=== PATIENT | female | born 1940 | race Caucasian/White ===

== ENCOUNTER → 2023-03-23 13:42 | Outpatient (REF) | payer MEDICARE, OTHER, SELFPAY ==
--- NOTE | 2023-03-23 13:47 | CA_ITS ---
Transthoracic Echocardiogram Patient (Last, First, Middle): Kaylie Henry, Gender: Female Date of : 1940 Age: 82 Procedure Date: 03/23/2023 Procedure Type: Transthoracic Echocardiogram Location: [facility] Height: 149.86 cm Weight: 64.41 kg BSA: 1.59 m2 Heart Rate: 65 bpm BP: 132 / 68 mmHg Accountant Clerk: SB Referring MD: Elmer Ramos MD Symptoms: CARDIOMEGALY Study Quality: Adequate ECG Rhythm: Sinus Conclusions: - The left ventricular systolic function is normal. The visually estimated ejection fraction is between 65-70%. - There is mild calcification of the aortic valve. - There is mild mitral annular calcification. Findings Left Ventricle Normal left ventricular cavity size. There is normal left ventricular wall thickness. The left ventricular systolic function is normal. The visually estimated ejection fraction is between 65-70%. There is no evidence of regional wall motion abnormalities. Diastolic function is normal for age. LV peak GLS -16.9%, borderline reduced. Could also be underestimation. Right Ventricle Normal right ventricular cavity size and systolic function. Atria Both atria are normal in size. Aortic Valve There is a normal trileaflet aortic valve. There is mild calcification of the aortic valve. There is no aortic valve stenosis. There is no aortic valve regurgitation. Mitral Valve There is mild mitral annular calcification. There is no mitral valve regurgitation. There is no mitral valve stenosis. Pulmonic Valve The pulmonic valve is likely normal. Tricuspid Valve There is trace tricuspid valve regurgitation. There is no evidence of pulmonary hypertension. Great Vessels The asc aorta is normal in size. Venous The inferior vena cava is normal in size and collapses less than 50% with inspiration. Pericardium/Pleural There is a trivial pericardial effusion. Prior Study Comparison No significant change compared to prior study dated: 09/08/2013. Measurements 2D Linear Measurements IVSd: 0.86 0.6-0.9/0.6-1.0 cm LVIDd: 4.55 3.9-5.3/4.2-5.9 cm LVIDd Index: 2.86 2.4-3.2/2.2-3.1 cm/m2 LVIDs: 2.57 2.0-3.6 cm LVPWd: 0.83 0.7-1.1 cm LA Diam: 3.60 2.7-3.8/3.0-4.0 cm LAIDs Index: 2.26 1.5-2.3 cm/m2 LV Mass: 154.60 67-162/88-224 g LV Mass Index: 97.24 43-95/49-115 g/m2 LVOT Diam: 2.00 3.0+(-)1.3 cm 2D Systolic Function EF 4C: 61.90 >55% EF 2C: 64.40 >55% EF BiP: 63.00 >55% Mitral Valve MV VTI: 0.26 MV Pk Geovanny: 0.93 MV Mn Geovanny: 0.51 MV Pk Grad: 3.00 MV Mn Grad: 1.00 MV Pk E: 0.69 MV PK A: 1.08 MV Decel Time: 264.00 E/A: 0.60 E'Lateral: 6.31 E'Medial: 4.79 E/E' Med: 14.30 E/E' Lat: 10.90 PHT: 77.00 MVA PHT: 2.86 MVA Continuity: 2.37 Decel Traverse: 2.60 Aortic Valve AoV Pk Geovanny: 1.35 AoV Pk Grad: 7.00 KARINA: 2.23 LVOT LVOT Pk Geovanny: 0.99 LVOT Mn Geovanny: 0.75 LVOT VTI: 0.20 LVOT Pk Grad: 4.00 LVOT Mn Grad: 2.00 LVOT Diam: 2.00 LVOT Area: 3.14 Diastolic Function MV Pk E: 0.69 MV Pk A: 1.08 E/A: 0.60 E'Medial: 4.79 E/E' Med: 14.30 E' Laterial: 6.31 E/E' Lat: 10.90 Right Ventricle TAPSE (mm): 23.60 TVS' Geovanny: 12.50 Tricuspid Valve RA Press: 15.00 Great Vessels Aorta Sinus of Valsalva: 2.90 2.0-3.5 cm Ao Asc: 3.50 2.1-3.4 cm Pulmonary Valve PV Pk Geovanny: 1.03 Peak PV Grad: 4.00 Updated in Other Vendor System with Status of Final Michael Cronin MD electronically signed on 03/23/2023 4:32:50 PM with status of Final
== END ==
LOC: HO.CARD 13:42
PROVIDERS: PCP Family Medicine; Visit Provider Family Medicine
DX: I51.7 Cardiomegaly (principal)
CPT/HCPCS: 93306; 93356